=== PATIENT | male | born 1985 | race Caucasian/White ===

== ENCOUNTER 2016-07-19 08:35 | Emergency (ER) | payer OTHER ==
[2016-07-19 08:40] VITALS: PULSE 56
--- NOTE | 2016-07-19 08:45 | EDPHY ---
H & P Stated Complaint: UPPER ABD PIAN N/V Time Seen by Provider: 07/19/16 08:45 - Personal History Current Tetanus/Diphtheria Vaccine: Yes - Medical/Surgical History Hx Asthma: No Hx Chronic Respiratory Disease: No Hx Diabetes: No Hx Cardiac Disease: No Hx Renal Disease: No Hx Cirrhosis: No Hx Alcoholism: No Hx HIV/AIDS: No Hx Splenectomy or Spleen Trauma: No Other PMH: BACK SURGERY - Social History Smoking Status: Never smoked Constitutional: Initial Vital Signs Temperature (C) 36.5 C 07/19/16 08:38 Heart Rate 56 L 07/19/16 08:38 Respiratory Rate 20 07/19/16 08:38 Blood Pressure 102/66 07/19/16 08:38 O2 Sat (%) 99 07/19/16 08:38 O2 Delivery Mode Room Air Allergies/Adverse Reactions: No Known Allergies Allergy (Unverified 07/19/16 08:38) Home Medications: Medication Instructions Recorded ZTE 07/19/16 Medical Decision Making ED Course/Re-evaluation: CHIEF COMPLAINT: Abdominal pain, nausea HISTORY OF PRESENT ILLNESS: The patient is a 31 y/o male arriving with his complaining of persistent nausea since yesterday and worsening epigastric abdominal pain since yesterday. He reports the pain moves around slightly, but is currently localized "underneath my ribcage." He has associated decreased appetite and denies diarrhea. He denies history of abdominal surgeries or other pertinent medical history. He has not eaten since symptom onset. REVIEW OF SYSTEMS: A 10 point review of systems was performed and is negative with the exception of the elements mentioned in the history of present illness. PHYSICAL EXAM: HR, BP, O2 Sat, RR. Temp noted General Appearance: Alert, well hydrated, appropriate, and non-toxic appearing. Head: Atraumatic without scalp tenderness or obvious injury Eyes: Pupils equal, round, reactive to light and accommodation, EOMI, no trauma , no injection. Ears: Clear bilaterally, no perforation, normal landmarks Nose: Atraumatic, no rhinorrhea, clear. Throat: There is no erythema or exudates, no lesions, normal tonsils, mucus membranes moist. Neck: Supple, nontender, no lymphadenopathy. Respiratory: No retractions, no distress, no wheezes, and no accessory muscle use. Lungs are clear to auscultation bilaterally. Cardiovascular: Regular rate and rhythm, no murmurs, rubs, or gallops. Good capillary refill all extremities. Gastrointestinal: Abdomen is soft, McBurney's point tenderness, non-distended, no masses, no rebound, no guarding, no peritoneal signs. Musculoskeletal: Normal active ROM of all extremities, atraumatic. Neurological: Alert, appropriate, and interactive. The patient has normal DTRs and non-focal cranial nerves, motor, sensory, and cerebellar exam. Skin: No rashes, good turgor, no nodules on palpation. Past medical history: Denies Past surgical history: no abdominal surgeries Family history: noncontributory Social history: at bedside. PCP: [facility] DIAGNOSTICS/PROCEDURES/CRITICAL CARE TIME: I viewed the images myself on the PACS system. DIFFERENTIAL DIAGNOSIS: The differential diagnosis for the patient's abdominal pain included but was not limited to appendicitis, cholecystitis, hernias, testicular torsion, gastritis, and urinary tract infection. MEDICAL DECISION MAKING: This is a healthy 31 y/o male presenting with a 24-hour history of persistent nausea and progressive abdominal pain localizing more to his right abdomen. His story is consistent with acute appendicitis. Plan for IV, labs, ISTAT, and abdominal CT. 0.5mg IV Dilaudid, 4mg IV Zofran, and 1L IV NS administered. NPO status. Labs are unremarkable. CT abdomen is negative. I discussed these findings with the patient. He will be discharged with diagnosis of gastritis and referral to his PCP for follow up. Return precautions given. He is comfortable with this plan. - Data Points Laboratory Results: Laboratory Results 07/19/16 08:55 07/19/16 08:55 07/19/16 07/19/16 08:55 08:55 WBC 4.52 10^3/uL 10^3/uL (3.80-9.50) RBC 5.31 10^6/uL 10^6/uL (4.40-6.38) Hgb 17.2 g/dL g/dL (13.7-17.5) Hct 48.3 % % (40.0-51.0) MCV 91.0 fL fL (81.5-99.8) MCH 32.4 pg pg (27.9-34.1) MCHC 35.6 g/dL g/dL (32.4-36.7) RDW 12.6 % % (11.5-15.2) Plt Count 156 10^3/uL 10^3/uL (150-400) MPV 10.6 fL fL (8.7-11.7) Neut % (Auto) 52.7 % % (39.3-74.2) Lymph % (Auto) 34.3 % % (15.0-45.0) [place] % (Auto) 12.2 % % (4.5-13.0) Eos % (Auto) 0.4 % L % (0.6-7.6) Baso % (Auto) 0.2 % L % (0.3-1.7) Nucleat RBC Rel Count 0.0 % % (0.0-0.2) Absolute Neuts (auto) 2.38 10^3/uL 10^3/uL (1.70-6.50) Absolute Lymphs (auto) 1.55 10^3/uL 10^3/uL (1.00-3.00) Absolute Monos (auto) 0.55 10^3/uL 10^3/uL (0.30-0.80) Absolute Eos (auto) 0.02 10^3/uL L 10^3/uL (0.03-0.40) Absolute Basos (auto) 0.01 10^3/uL L 10^3/uL (0.02-0.10) Absolute Nucleated RBC 0.00 10^3/uL 10^3/uL (0-0.01) Immature Gran % 0.2 % % (0.0-1.1) Immature Gran # 0.01 10^3/uL 10^3/uL (0.00-0.10) Sodium 141 mEq/L mEq/L (134-144) Potassium 4.3 mEq/L mEq/L (3.5-5.2) Chloride 105 mEq/L mEq/L (97-110) Carbon Dioxide 26 mEq/l mEq/l (22-31) Anion Gap 10 mEq/L mEq/L (8-16) BUN 13 mg/dL mg/dL (7-23) Creatinine 1.1 mg/dL mg/dL (0.7-1.3) Estimated GFR > 60 Glucose 96 mg/dL mg/dL (70-100) Calcium 9.6 mg/dL mg/dL (8.5-10.4) Total Bilirubin 1.6 mg/dL H mg/dL (0.1-1.4) Conjugated Bilirubin 0.3 mg/dL mg/dL (0.0-0.5) Unconjugated Bilirubin 1.3 mg/dL H mg/dL (0.0-1.1) AST 33 IU/L IU/L (17-59) ALT 39 IU/L IU/L (21-72) Alkaline Phosphatase 66 IU/L IU/L (38-126) Total Protein 7.6 g/dL g/dL (6.3-8.2) Albumin 4.5 g/dL g/dL (3.5-5.0) Lipase 95.0 IU/L IU/L (23-300) Medications Given: Discontinued Medications Sodium Chloride (Ns) 1,000 mls @ 0 mls/hr IV ONCE ONE PRN Reason: Wide Open Stop: 07/19/16 08:59 Last Admin: 07/19/16 09:27 Dose: 1,000 mls Departure - Departure Disposition: Home, Routine, Self-Care Clinical Impression: Gastritis Qualifiers: Gastritis type: other gastritis Chronicity: acute Gastritis bleeding: without bleeding Qualified Code(s): K29.00 - Acute gastritis without bleeding Condition: Good Instructions: Gastritis (ED), Ondansetron (By mouth) Additional Instructions: 1. Take Zofran as prescribed when needed for nausea or vomiting. 2. Increase fluid intake as tolerated. 3. Follow up with your primary care provider for symptoms unimproved over the next few days. 4. Return to the ED for any worsening of condition. Referrals: Luli Gibbs PA [Primary Care Provider] - As per Instructions Report Scribed for: Renato Dumont Report Scribed by: Anai Nj Date of Report: 07/19/16 Time of Report: 08:58
[2016-07-19] MEDS ORDERED: NS 1,000 ML IV ONE ×2 (08:58)
[2016-07-19] MEDS ORDERED: HYDROmorphONE/DILAUDID 1 MG/ML SYR IVP ONE (08:58)
[2016-07-19] MEDS ORDERED: ONDANSETRON 4 MG/2 ML VIAL IVP ONE (08:58)
[2016-07-19 09:12] LABS: % IMMATURE GRANULYOCYTES 0.2 % (0.0-1.1); ABSOLUTE IMMATURE GRANULOCYTES 0.01 10^3/uL (0.00-0.10); ADD DIFF? NO; ADD MORPH? NO; ADD SCAN? NO; ATYPICAL LYMPHOCYTE FLAG 20 (0-99); FRAGMENT RBC FLAG 0 (0-99); HEMATOCRIT 48.3 % (40.0-51.0); HEMOGLOBIN 17.2 g/dL (13.7-17.5); LEFT SHIFT FLG 0 (0-99); LIPEMIA HEMOLYSIS FLAG 90 (0-99); MEAN CELL HEMOGLOBIN 32.4 pg (27.9-34.1); MEAN CELL HEMOGLOBIN CONCENTR. 35.6 g/dL (32.4-36.7); MEAN PLATELET VOLUME 10.6 fL (8.7-11.7); PLATELET CLUMPS FLAG 0 (0-99); PLATELET COUNT 156 10^3/uL (150-400); RED BLOOD CELL COUNT 5.31 10^6/uL (4.40-6.38); RED CELL DISTRIBUTION WIDTH 12.6 % (11.5-15.2)
[2016-07-19] MEDS ORDERED: IOPAMIDOL (ISOVUE-300) 100 ML BTL IV ONE (09:16)
[2016-07-19 09:25] LABS: ALANINE AMINOTRANSFERASE 39 IU/L (21-72); ALBUMIN 4.5 g/dL (3.5-5.0); ALKALINE PHOSPHATASE 66 IU/L (38-126); ANION GAP 10 mEq/L (8-16); ASPARTATE AMINOTRANSFERASE 33 IU/L (17-59); BILIRUBIN,TOTAL 1.6 mg/dL (0.1-1.4); BILIRUBIN-CONJUGATED 0.3 mg/dL (0.0-0.5); BILIRUBIN-UNCONJUGATED 1.3 mg/dL (0.0-1.1); CALCIUM 9.6 mg/dL (8.5-10.4); CARBON DIOXIDE 26 mEq/l (22-31); CHLORIDE 105 mEq/L (97-110); CREATININE 1.1 mg/dL (0.7-1.3); GLOMERULAR FILTRATION RATE > 60; GLUCOSE 96 mg/dL (70-100); POTASSIUM 4.3 mEq/L (3.5-5.2); SODIUM 141 mEq/L (134-144); TOTAL PROTEIN 7.6 g/dL (6.3-8.2)
[2016-07-19] MEDS ORDERED: ONDANSETRON 4MG PREPACK#2 BTL TAKEHOME ONE (10:07)
[2016-07-19 10:34] VITALS: BP 93/62; RESP 18; TEMP 97.5; O2SAT 96
== END 2016-07-19 10:34 | disposition home or self-care (01) ==
DX: K29.00 Acute gastritis without bleeding (principal)
CPT/HCPCS: 82947-QW; 96374; J2405; Q9967

== ENCOUNTER → 2016-10-08 | Outpatient (CLI) | payer OTHER | LOC: CIMAGING 14:00 | PROVIDERS: ATTEND Internal Medicine | DX: S99.922A Unspecified injury of left foot, initial encounter (principal) | CPT/HCPCS: 73610-PO; 73630-PO ==